=== PATIENT | female | born 1945 | race Caucasian/White ===

== ENCOUNTER → 2018-08-10 11:05 | Oncology outpatient (ONC) | payer OTHER, SELFPAY ==
--- NOTE | 2018-08-10 10:02 | P.PNONC_ITS ---
PN -Subjective Interval history: The patient is a 73-year-old female being seen in the clinic August 10, 2018. She carries a diagnosis of aplastic anemia treated with antithymocyte globulin at [facility] followed by cyclosporine and prednisone. She developed mild renal insufficiency making cyclosporin treatment difficult however has now been off treatment for 3 years. Today Kaleigh has no complaints whatsoever. She is feeling quite well overall. Activity tolerance is excellent. Appetite is excellent. No shortness of breath , chest pain. She has not had any recent illnesses or infections. She is due for a mammogram. She had a colonoscopy 10 years ago which was reported to be ?normal?, she discussed with her primary care provider decision was made to not move forward with any further colonoscopies. Stol card test was negative. Home Medications and Allergies Home Medications Medication Instructions Recorded Confirmed Type indomethacin 50 mg PO BIDP PRN #0 03/12/17 History acetaminophen 500 mg PO Q6H PRN 08/10/18 08/10/18 History cholecalciferol (vitamin D3) 5,000 unit PO DAILY 08/10/18 08/10/18 History [Vitamin D3] hydrochlorothiazide 25 mg PO DAILY 08/10/18 08/10/18 History magnesium oxide 400 mg PO DAILY 08/10/18 08/10/18 History [id number]-[id number] 08/10/18 History [Multivitamin 50 Plus] omega 9-bof-rcf-fish oil [Fish Oil] 1,200 08/10/18 History vitamin E 180 unit PO DAILY 08/10/18 08/10/18 History Allergies Allergy/AdvReac Type Severity Reaction Status Date / Time Penicillins [PENICILLINS] Allergy Intermediate swelling, Unverified 02/18/18 13: 00 itching SHRIMP Allergy Intermediate hives Uncoded 02/18/18 13:00 Exam - Constitutional positive no acute distress, positive obese - Routine HEENT Exam Eye: Present: conjunctivae pink. Absent: conjunctival icterus, scleral injection ENT: Present: mucous membranes moist, oropharynx clear - Routine Neck Exam Present: supple. Absent: lymphadenopathy - Routine Chest/Breast/Axilla Exam Axillae: Absent: lymphadenopathy - Routine Respiratory Exam Present: Clear to auscultation bilaterally. Absent: rales, rhonchi, wheezes - Routine Cardiovascular Exam Present: RRR, S1, S2. Absent: murmur, gallop, rubs, JVD - Routine Abdominal Exam Present: soft, normoactive bowel sounds. Absent: tenderness, distended, organomegaly, mass - Routine Extremities Exam Absent: edema - Routine Skin Exam Present: intact, normal turgor. Absent: rash - Routine Neurological Exam Present: alert, oriented X3 - Routine Psychiatric Exam Present: normal affect Results - Imaging Additional studies: Procedures Transfusion of packed cells (06/28/15) Transfusion of platelets (04/25/15) Assessment and Plan (1) Aplastic anemia Current visit: No Status: Acute The patient is a 73-year-old female being seen in the clinic August 10, 2018. She carries a diagnosis of aplastic anemia treated with antithymocyte globulin at [facility] followed by cyclosporine and prednisone. She developed mild renal insufficiency making cyclosporin treatment difficult however has now been off treatment for 3 years. Patient has no complaints whatsoever on exam today, overall feeling quite well. CBC demonstrates a white count of 7.2 hemoglobin 13.3 hematocrit 39.3 MCV 95.6. Platelets 218216. ANC 5000. Creatinine is stable for this patient with renal insufficiency at 1.8. GFR also stable for this patient at 28. Alkaline phosphatase 53, AST 16, ALT 15. Pt is followed by Dr Fernandez, he manages her DM also follows renal function. Return to clinic in 1 years time for provider visit, CBC, CMP. - Time Spent with Patient 30 mins
[2018-08-10 11:16] VITALS: BP 150/86; PULSE 81; RESP 18; TEMP 36.6; O2SAT 99
== END ==
PROVIDERS: Family Provider Family Medicine; PCP Family Medicine; Visit Provider Nurse Practitioner Gerontology
DX: D61.9 Aplastic anemia, unspecified (principal); N28.9 Disorder of kidney and ureter, unspecified
CPT/HCPCS: 99214

== ENCOUNTER 2020-09-15 17:07 | Emergency (ER) | payer MEDICARE, BC, SELFPAY ==
[2020-09-15] VITALS (12 sets, daily range): BP systolic 144–226; BP diastolic 71–115; PULSE 82–97; RESP 15–21; O2SAT 93–100
--- NOTE | 2020-09-15 17:44 | DI.CT.S_ITS ---
PROCEDURE: CT CHEST ABD PEL WO CON INDICATIONS: large mass on outside CXR, sent for expedited workup TECHNIQUE: After the administration of oral contrast, 5 mm thick sections acquired from the lung apices to the symphysis pubis. 5 mm thick coronal and sagittal reformats acquired, with additional 7 mm coronal MIP reformats through the lungs. For radiation dose reduction, the following was used: automated exposure control, adjustment of mA and/or kV according to patient size. COMPARISON: [facility], CT, PE STUDY (CTA CHEST), 05/08/2015, 16:13. [facility], CR, CHEST 2 VIEW, 11/22/2015, 11:43. FINDINGS: Image quality: Excellent. CHEST: Lungs and pleura: Mild ground-glass density and interstitial pulmonary opacity within the right upper lobe medially. Multi lobular 33 mm mass mm within the right upper lobe posteriorly. No pleural effusions or pneumothorax. Central and peripheral airways are patent are normal in caliber. Mediastinum: Heart size is normal. Calcification of the coronary vasculature. Small pericardial effusion. pericardial effusion. There is a large mass within the right paratracheal location measuring 83 mm anteroposterior which partially encases the andrés and right mainstem bronchus. Subcarinal adenopathy measuring 25 mm short axis is present. Thoracic aorta and central pulmonary arteries are normal in size. Esophagus is normal in caliber. No hiatal hernia. Chest wall: No axillary or supraclavicular adenopathy by size criteria. Thyroid gland is within normal limits . ABDOMEN: Solid organs: Liver is normal in size. Gallbladder is within normal limits . Pancreas is normal in contours. Spleen is normal in size. No adrenal nodules. Both kidneys are normal in size, without hydronephrosis or nephrolithiasis. Peritoneum and bowel: Small and large bowel loops are normal in caliber and wall thickness. No free fluid or air. Nodes and vessels: No retroperitoneal or mesenteric adenopathy by size criteria. Aorta and inferior vena cava are normal in size. Miscellaneous: No ventral hernias. PELVIS: Genitourinary: Bladder wall thickness is normal. Miscellaneous: No inguinal hernias or adenopathy. Bones: No suspicious bony lesions. Bilateral hip arthroplasty. No vertebral body compression fractures. IMPRESSION: 1. Right upper lobe malignant-appearing mass. 2. Metastatic mediastinal and right hilar adenopathy associated with encasement of the airways as described above. 3. Mild postobstructive phenomenon within the right upper lobe. 4. Coronary artery disease. 5. Small pericardial effusion. Dictated by: Blayne Polo M.D. on 09/15/2020 at 19:19 Approved by: Blayne Polo M.D. on 09/15/2020 at 19:23
[2020-09-15 17:59] LABS: Add Manual Diff / Slide Review NO; Basophils Absolute Auto 0 /uL (0-100); Basophils Percent Auto 0.6 % (0-2); Eosinophils Absolute Auto 200 /uL (0-450); Eosinophils Percent Auto 2.5 % (2-4); Hematocrit 34.6 % (36-46); Hemoglobin 11.8 g/dL (12.0-16.0); Lymphocytes Absolute Auto 1300 /uL (1100-4500); Lymphocytes Percent Auto 20.6 % (25-40); Mean Corpuscular HGB Conc 34.2 % (30-36); Mean Corpuscular Hemoglobin 32.5 PG (26-34); Mean Corpuscular Volume 94.9 fL (80-100); Monocytes Absolute Auto 400 /uL (0-900); Monocytes Percent Auto 6.6 % (3-14); Neutrophils Absolute Auto 4300 /uL (1500-7000); Neutrophils Percent Auto 69.7 % (50-75); Platelet Count 151 X10^3/uL (150-400); Red Blood Cell Count 3.64 X10^6/uL (4.0-5.2); Red Cell Distribution Width 13.2 % (11.6-14.8); White Blood Cell Count 6.1 X10^3/uL (4.5-11.0)
[2020-09-15 18:07] LABS: INR 1.1 (0.9-1.3); Prothrombin Time 12.2 SECONDS (10.1-12.7)
[2020-09-15 18:09] LABS: PTT Partial Thromboplastin Tim 35 SECONDS (26.4-36.2)
[2020-09-15 18:11] LABS: Alanine Aminotransferase 22 IU/L (<35); Albumin 4.6 g/dL (3.5-5.0); Albumin Globulin Ratio 1.2 (1.0-2.8); Alkaline Phosphatase 67 U/L (38-126); Aspartate Aminotransferase 39 IU/L (14-36); BUN Creatinine Ratio 18.5 (6-22); Bilirubin Total 0.5 mg/dL (0.2-1.3); Blood Urea Nitrogen 41 mg/dL (7-17); Carbon Dioxide 32 mmol/L (22-32); Chloride 98 mmol/L (98-107); Creatine Kinase 50 U/L (30-135); Estimated Glomerular Filt Rate 21.6 mL/min (>60); Globulin 3.9 g/dL (1.7-4.1); Glucose 111 mg/dL (80-110); HEMOLYSIS 19 (0-50); Lipase 220 U/L (23-300); Sodium 137 mmol/L (137-145); Total Protein 8.5 g/dL (6.3-8.2)
[2020-09-15 18:22] LABS: Troponin I < 0.012 ng/mL (0.01-0.034)
--- NOTE | 2020-09-15 18:40 | ED_ITS ---
HPI - SOB/Dyspnea General Chief Complaint: Shortness of Breath/Dyspnea Stated Complaint: sent by doctor, abnormal xray, R lung nodule Time Seen by Provider: 09/15/20 17:34 Source: patient Mode of arrival: Ambulatory Limitations: no limitations History of Present Illness HPI Narrative: 75-year-old female former smoker without significant medical history presents at the request of her primary care provider. She has had increasing shortness of breath, fatigue and a fullness in her chest for least the past month period a few days ago she started having some blood streaked sputum but still has no significant work of breathing or respiratory distress. She has had no headache or blurred vision. She denies any chest pain, fever, chills nor nausea or vomiting. She denies any history of cancer or unplanned weight loss. She went to see her primary care provider due to the above-stated complaints and he performed a chest x-ray which suggested a mass in her right lung upwards of 9 cm. MD Complaint: shortness of breath and cough Onset (ago): week(s) Severity: moderate Consistency/Duration: constant Relieving factors: rest Exacerbating factors: movement and coughing Treatment prior to arrival: none Related Data Home oxygen amount: none Home Medications Medication Instructions Recorded Confirmed indomethacin 50 mg PO BIDP PRN #0 03/12/17 acetaminophen 500 mg PO Q6H PRN 08/10/18 08/10/18 cholecalciferol (vitamin D3) 5,000 unit PO DAILY 08/10/18 08/10/18 [Vitamin D3] hydrochlorothiazide 25 mg PO DAILY 08/10/18 08/10/18 magnesium oxide 400 mg PO DAILY 08/10/18 08/10/18 [id number] 08/10/18 [Multivitamin 50 Plus] omega 6-xvp-sdn-fish oil [Fish Oil] 1,200 08/10/18 vitamin E 180 unit PO DAILY 08/10/18 08/10/18 Previous Rx's Medication Instructions Recorded azithromycin See Rx Instructions .ROUTE 09/15/20 .COMPLEX #6 tab Allergies Allergy/AdvReac Type Severity Reaction Status Date / Time Penicillins [PENICILLINS] Allergy Intermediate swelling, Unverified 02/18/18 13:00 itching SHRIMP Allergy Intermediate hives Uncoded 02/18/18 13:00 Review of Systems Constitutional Constitutional: Denies chills, Denies fatigue, Denies fever(s), Denies frequent falls, Denies lethargy and Denies weakness Eyes Eyes: Denies change in vision, Denies eye discharge, Denies irritation and Denies loss of vision ENT Ears, Nose, Mouth, and Throat: Denies change in voice, Denies dizziness, Denies neck pain, Denies sore throat and Denies throat swelling Cardiovascular Cardiovascular: Denies chest pain, Denies irregular heart rhythm, Denies lightheadedness, Denies palpitations, Reports dyspnea, Denies dyspnea on exertion and Denies orthopnea Respiratory Respiratory: Reports cough, Reports hemoptysis, Reports dyspnea, Denies dyspnea on exertion and Denies wheezing Gastrointestinal Gastrointestinal: Denies abdominal pain, Denies change in bowel habits, Denies diarrhea, Denies nausea and Denies vomiting Musculoskeletal Musculoskeletal: Denies neck pain and Denies numbness Integumentary/Breasts Skin/Breast: Denies pruritus, Denies erythema, Denies rash and Denies wounds Neurologic Neurologic: Denies behavioral changes, Denies confusion, Denies dizziness, D enies frequent falls, Denies loss of vision, Denies numbness and Denies weakness Psychiatric Psychiatric: Denies anxiety, Denies behavioral changes, Denies confusion, Denies depression, Denies homicidal ideation and Denies suicidal ideation Endocrine Endocrine: Denies fatigue, Denies flushing and Denies palpitations Hematologic/Lymphatic Hematologic/Lymphatic: Denies easy bruising Allergic/Immunologic Allergic/Immunologic: Denies urticaria, Denies throat swelling and Denies wheezing Patient History Surgical History History of hip replacement Status post hysterectomy Family History Brother Cancer Smoking Status: Former smoker alcohol intake frequency: 0-2 drinks per day Substance Use Type: does not use Exam Narrative Exam Narrative: GENERAL: [75] year old patient appears stated age. Well- nourished, well-developed patient, in mild distress. HEAD: Atraumatic. Normocephalic. EYES: Pupils equal round and reactive. Extraocular motions intact. No scleral icterus. No injection or drainage. ENT: Nose without bleeding, purulent drainage. Throat without erythema, tonsillar hypertrophy or exudate. Airway patent. NECK: Trachea midline. Non tender CARDIOVASCULAR: Regular rate and rhythm without murmurs, gallops, or rubs. RESPIRATORY: Clear to auscultation. Breath sounds equal bilaterally. No wheezes, rales, or rhonchi. GASTROINTESTINAL: Abdomen soft, non-tender, nondistended. EXTREMITIES: No edema or joint tenderness. BACK: Nontender without deformity or crepitance. No flank tenderness. NEURO: AOx3. SKIN: No rash or erythema of visible areas Initial Vital Signs Initial Vital Signs: Vital Signs Pulse Rate 95 H 09/15/20 17:30 Respiratory Rate 18 09/15/20 17:30 Blood Pressure 226/95 H 09/15/20 17:30 Pulse Oximetry 99 09/15/20 17:30 Course Orders Ordered: Discontinued Medications Sodium Chloride (Normal Saline 0.9%) 500 mls @ 1,000 mls/hr IV BOLUS ONE Stop: 09/15/20 19:05 Last Admin: 09/15/20 19:22 Dose: 1,000 mls/hr Documented by: MMINOR Consultations Consultation #1: Discussed with on-call Oncology, Dr. Flynn. Shares opinion that given stable presentation she is appropriate to go home, but will require close follow up. He will relay message to Dr. Gonzales and suggests patient may benefit from Azithromycin given CT findings, also patinet may very well need tissue diagnosis and Dr. Gonzales can help with this. Vital Signs Vital signs: Vital Signs - 8 hr 09/15/20 17:30 09/15/20 18:08 09/15/20 18:14 Pulse Rate 95 H 94 H 97 H Respiratory Rate 18 19 21 Blood Pressure 226/95 H 182/86 H Pulse Oximetry 99 100 09/15/20 18:30 09/15/20 18:31 09/15/20 19:00 Pulse Rate 96 H 96 H 94 H Respiratory Rate 17 15 19 Blood Pressure 172/77 H Pulse Oximetry 98 99 93 09/15/20 19:19 09/15/20 19:30 09/15/20 19:31 Pulse Rate 93 H 91 H 91 H Respiratory Rate 21 17 19 Blood Pressure 166/115 H 165/71 H Pulse Oximetry 99 99 MDM - SOB/Dyspnea Lab Data Result diagrams: 09/15/20 17:55 09/15/20 17:55 Labs: Lab Results 11/06/20 11/06/20 11/06/20 Range/Units 17:55 17:55 17:55 WBC 6.1 (4.5-11.0) X10^3/uL RBC 3.64 L (4.0-5.2) X10^6/uL Hgb 11.8 L (12.0-16.0) g/dL Hct 34.6 L (36-46) % MCV 94.9 (80-100) fL MCH 32.5 (26-34) PG MCHC 34.2 (30-36) % RDW 13.2 (11.6-14.8) % Plt Count 151 (150-400) X10^3/uL Neut % (Auto) 69.7 (50-75) % Lymph % (Auto) 20.6 L (25-40) % [place] % (Auto) 6.6 (3-14) % Eos % (Auto) 2.5 (2-4) % Baso % (Auto) 0.6 (0-2) % Neut # (Auto) 4300 (1059-8442) /uL Lymph # (Auto) 1300 (8912-2615) /uL [place] # (Auto) 400 (0-900) /uL Eos # (Auto) 200 (0-450) /uL Baso # (Auto) 0 (0-100) /uL PT 12.2 (10.1-12.7) SECONDS INR 1.1 (0.9-1.3) APTT 35 (26.4-36.2) SECONDS Sodium 137 (137-145) mmol/L Potassium 4.0 (3.4-5.1) mmol/L Chloride 98 (98-107) mmol/L Carbon Dioxide 32 (22-32) mmol/L BUN 41 H (7-17) mg/dL Creatinine 2.22 H (0.52-1.04) mg/dL Estimated GFR 21.6 L (>60) mL/min BUN/Creatinine Ratio 18.5 (6-22) Glucose 111 H (80-110) mg/dL Calcium 10.0 (8.4-10.2) mg/dL Total Bilirubin 0.5 (0.2-1.3) mg/dL AST 39 H (14-36) IU/L ALT 22 (<35) IU/L Alkaline Phosphatase 67 (38-126) U/L Total Creatine Kinase 50 (30-135) U/L CK-MB (CK-2) TNP CK-MB (CK-2) Rel Index TNP Troponin I < 0.012 (0.01-0.034) ng/mL Total Protein 8.5 H (6.3-8.2) g/dL Albumin 4.6 (3.5-5.0) g/dL Globulin 3.9 (1.7-4.1) g/dL Albumin/Globulin Ratio 1.2 (1.0-2.8) Lipase 220 (23-300) U/L Imaging Data CT scan - chest: Radiologist's Impression: [address] [address] [address] Scan Report Signed Patient: Ayesha Mills KMR#: [id number] : 6Acct:[id number] Age/Sex: 75 / FDate of Service: 09/15/20 Loc: ED Accession Number: [id number] Procedure: CT chest abd pel wo con Ordering Provider: Dallas Hutton D.O. PROCEDURE: CT CHEST ABD PEL WO CON INDICATIONS: large mass on outside CXR, sent for expedited workup TECHNIQUE: After the administration of oral contrast, 5 mm thick sections acquired from the lung apices to the symphysis pubis. 5 mm thick coronal and sagittal reformats acquired, with additional 7 mm coronal MIP reformats through the lungs. For radiation dose reduction, the following was used: automated exposure control, adjustment of mA and/or kV according to patient size. COMPARISON: [facility], CT, PE STUDY (CTA CHEST), 05/08/2015, 16:13. [facility], CR, CHEST 2 VIEW, 11/22/2015, 11:43. FINDINGS: Image quality: Excellent. CHEST: Lungs and pleura: Mild ground-glass density and interstitial pulmonary opacity within the right upper lobe medially. Multi lobular 33 mm mass mm within the right upper lobe posteriorly. No pleural effusions or pneumothorax. Central and peripheral airways are patent are normal in caliber. Mediastinum: Heart size is normal. Calcification of the coronary vasculature. Small pericardial effusion. pericardial effusion. There is a large mass within the right paratracheal location measuring 83 mm anteroposterior which partially encases the andrés and right mainstem bronchus. Subcarinal adenopathy measuring 25 mm short axis is present. Thoracic aorta and central pulmonary arteries are normal in size. Esophagus is normal in caliber. No hiatal hernia. Chest wall: No axillary or supraclavicular adenopathy by size criteria. Thyroid gland is within normal limits . ABDOMEN: Solid organs: Liver is normal in size. Gallbladder is within normal limits . Pancreas is normal in contours. Spleen is normal in size. No adrenal nodules. Both kidneys are normal in size, without hydronephrosis or nephrolithiasis. Peritoneum and bowel: Small and large bowel loops are normal in caliber and wall thickness. No free fluid or air. Nodes and vessels: No retroperitoneal or mesenteric adenopathy by size criteria. Aorta and inferior vena cava are normal in size. Miscellaneous: No ventral hernias. PELVIS: Genitourinary: Bladder wall thickness is normal. Miscellaneous: No inguinal hernias or adenopathy. Bones: No suspicious bony lesions. Bilateral hip arthroplasty. No vertebral body compression fractures. IMPRESSION: 1. Right upper lobe malignant-appearing mass. 2. Metastatic mediastinal and right hilar adenopathy associated with encasement of the airways as described above. 3. Mild postobstructive phenomenon within the right upper lobe. 4. Coronary artery disease. 5. Small pericardial effusion. Dictated by: Blayne Polo M.D. on 09/15/2020 at 19:19 Approved by: Blayne Polo M.D. on 09/15/2020 at 19:23 MDM Narrative Medical decision making narrative: Patient presents with mass on CXR and CT suggests this likely a lung cancer with metastasis. Patient understands her possible diagnosis, and the plan to follow up closely . She's been given extensive return precautions which she understands well. She's had her questions answered to her apparent satisfaction. Discharge Plan Departure Patient Disposition: Home Clinical Impression: Mass of lung Discharge Date/Time: 09/15/20 20:34 Instructions: DI for Lung Cancer Activity Restrictions/Additional Instructions: *You have been diagnosed with [is seems very likely that the lung mass noted under chest x-ray is in fact lung cancer, it is very important that we get you in contact with oncology Friday morning. As I told you, I called the on-call oncologist nerissa who is in agreement with this plan.] *What to do: *Take medications as directed *call Dr. Gonzales at the [facility] on Friday morning at 0830, tell them we saw you in the Emergency Department and Dr. Ferreira wants you to be seen as soon as possible *Return to ER if you should have any new, worsening or concerning symptoms Prescriptions: New azithromycin 250 mg tablet See Rx Instructions .ROUTE .COMPLEX Qty: 6 RF: 0 No Action indomethacin 50 MG capsule 50 mg PO BIDP PRN (Reason: GOUT) Qty: 0 RF: 0 vitamin E 100 unit Capsule 180 unit PO DAILY RF: 0 acetaminophen 500 mg Tablet 500 mg PO Q6H PRN (Reason: Pain (Scale Score 1-3)) RF: 0 magnesium oxide 400 mg Tablet 400 mg PO DAILY RF: 0 txcpycjhmzhq-tlayqdwj-zcwnew [Multivitamin 50 Plus] Tablet RF: 0 cholecalciferol (vitamin D3) [Vitamin D3] 5,000 unit Tablet 5,000 unit PO DAILY RF: 0 omega 5-jsd-ikt-fish oil [Fish Oil] 1,000 mg (120 mg-180 mg) Capsule 1,200 RF: 0 hydrochlorothiazide 25 mg Tablet 25 mg PO DAILY RF: 0 Referrals: Saurabh Fernandez MD [Primary Care Provider] - Melany Gonzales MD [Physician] -
[2020-09-15] MEDS: SODIUM CHLORIDE 0.9% 500 ML 1000 ML IV (19:22)
--- NOTE | 2020-09-29 10:46 | PC.NURSE ---
STOP time of 500ML NS was 2030
== END 2020-09-15 20:34 | disposition home or self-care (01) ==
PROVIDERS: Emergency Provider Emergency Medicine; Family Provider Family Medicine; PCP Family Medicine
DX: R91.8 Other nonspecific abnormal finding of lung field (principal); R07.9 Chest pain, unspecified; R04.2 Hemoptysis
CPT/HCPCS: 71250; 74176; 80053; 82550; 83690; 84484; 85025; 85610; 85730; 93005; 96360; 99283; 99284; 99285

== ENCOUNTER → 2020-10-04 10:33 | Outpatient (CLI) | payer MEDICARE, BC, SELFPAY ==
--- NOTE | 2020-10-04 10:37 | DI.MRI.S_ITS ---
PROCEDURE: MR HEAD/BRAIN WO/W CON INDICATIONS: metastatic lung cancer TECHNIQUE: Noncontrast axial T1 spin echo, axial T2 fast spin echo, sagittal and axial FLAIR, coronal T2 fast spin echo, axial gradient echo, axial diffusion and ADC through the brain. After the administration of contrast, axial and coronal T1 spin echo with fat saturation through the brain. COMPARISON: None. FINDINGS: Image quality: Excellent. CSF spaces: Basal cisterns are patent. No extra-axial fluid collections. Ventricles are normal in size and shape. Brain: Within the right superior cerebellum, there is a rim enhancing mass seen, with cystic and solid components measuring 1.7 x 1.7 by 1.7 cm. No definite additional enhancing masses are seen. No midline shift. No intracranial bleeds can be seen. There is cerebral volume loss for age. There is periventricular white matter chronic small vessel ischemic change. The brainstem appears normal. Diffusion-weighted images demonstrate no acute ischemic insults. No chronic ischemic insults. Normal intravascular flow voids are present. Skull and face: Calvarial marrow is normal in signal. Orbits appear normal. Sinuses: Sinuses and mastoids appear clear. IMPRESSION: There is a 1.7 cm mass within the right cerebellum, which is attributed to metastatic disease in this patient with this given history. Dictated by: Carloz Fontaine M.D. on 10/04/2020 at 11:22 Approved by: Carloz Fontaine M.D. on 10/04/2020 at 11:24
== END ==
PROVIDERS: Family Provider Family Medicine; PCP Family Medicine; Referring Provider Internal Medicine Hematology & Oncology; Visit Provider Internal Medicine Hematology & Oncology
DX: C34.90 Malignant neoplasm of unspecified part of unspecified bronchus or lung (principal); C79.31 Secondary malignant neoplasm of brain
CPT/HCPCS: 70553

== ENCOUNTER 2020-11-15 10:05 | Day surgery (SDC) | payer MEDICARE, SELFPAY ==
[2020-11-15] VITALS (11 sets, daily range): BP systolic 93–127; BP diastolic 43–77; PULSE 83–105; RESP 10–18; TEMP 36.2–37.1; O2SAT 98–99; BMI 32.5
--- NOTE | 2020-11-15 | PATH_ITS ---
[facility] Accession Number: [id number] . 01 Material submitted: . PART A: cecum - RANDOM CECUM BIOPSIES PART B: colon - TRANSVERSE POLYP X2 . 02 Diagnosis: A. Random Cecum, Biopsies: Colonic mucosa with no diagnostic abnormality. Negative for active, chronic, and microscopic colitis. Negative for dysplasia and malignancy. . B. Transverse Colon, Polyp x2, Biopsy: Tubular adenoma in two of four fragments. MRV 11/17/2020 1253 Local . 02 Electronically signed: . Sierra Hatch MD, Pathologist NPI- [id number] . 01 Gross description: . Part A: RANDOM CECUM BIOPSIES: Received in formalin are multiple fragment(s) of boogie, soft tissue measuring 0.1 x 0.1 x 0.1 cm to 0.3 x 0.2 x 0.2 cm submitted entirely in 1 cassette(s) Part B: TRANSVERSE POLYP X2: Received in formalin are 4 fragment(s) of boogie, soft tissue measuring 0.1 x 0.1 x 0.1 cm to 0.6 x 0.2 x 0.2 cm submitted entirely in 1 cassette(s) /ANIL 11/16/2020 1907 Local . 02 Pathologist provided ICD-10: D12.3 . 02 CPT . 570192, 022098 Performed at: 01 [facility] [address], [place], [place] [id number] MD Alirio Abraham MD Phone: [phone] Performed at: 02 [facility] [address] [place], [place] [id number] MD Sierra Hatch MD Phone: [phone]
--- NOTE | 2020-11-15 08:19 | PM.HP.1 ---
History of Present Illness History of Present Illness Date Patient Seen: 11/15/20 Chief complaint: SDC Narrative: 75-year-old female with metastatic lung cancer who had abnormal uptake on PET scan in the cecum. She was seen in our office on 11/08/2020 Patient History Medical History (Updated 11/03/20 @ 10:11 by Melany Gonzales MD) Aplastic anemia Chronic kidney disease Diabetes Hypertension Surgical History History of hip replacement Status post hysterectomy Family & Social History Family History (Updated 09/21/20 @ 12:44 by Melany Gonzales MD) Brother Prostate cancer Tobacco & Substance use: Smoking Status Former smoker alcohol intake former alcohol intake frequency 0-2 drinks per day Substance Use Type does not use Meds Home Medications and Allergies Home Medications Medication Instructions Recorded Confirmed Type acetaminophen 500 mg PO Q6H PRN 08/10/18 11/15/20 History cholecalciferol (vitamin D3) 5,000 unit PO DAILY 08/10/18 11/15/20 History [Vitamin D3] hydrochlorothiazide 25 mg PO DAILY 08/10/18 11/15/20 History magnesium oxide 400 mg PO DAILY 08/10/18 11/15/20 History vitamin E 180 unit PO DAILY 08/10/18 11/15/20 History ascorbic acid (vitamin C) [Vitamin 500 mg DAILY 09/21/20 11/15/20 History C] dexamethasone 2 mg PO Q12H #30 tab 10/09/20 11/15/20 Rx Allergies Allergy/AdvReac Type Severity Reaction Status Date / Time Penicillins [PENICILLINS] Allergy Intermediate swelling, Verified 11/15/20 10:38 itching SHRIMP Allergy Intermediate hives Uncoded 11/15/20 10:38 Exam Narrative Exam Narrative: General: Patient is well developed, not in apparent distress Cardiovascular: Regular rate and rhythm, no murmurs, rubs, or gallops; no evidence of edema; no palpable abdominal aortic aneurysm Gastrointestinal: Normoactive bowel sounds, soft, nontender, nondistended, no rebound tenderness, no hepatosplenomegaly, no evidence of hernia Assessment & Plan Assessment & Plan narrative: 75-year-old female with metastatic lung cancer and found to have abnormal uptake in the cecum on PET scan Regarding the procedure(s), the risks and potential complications, benefits, and alternatives (including not doing the procedure) were discussed with the patient. The risks include but are not limited to bleeding, splenic injury, infection, perforation which may require surgical intervention, missed lesions, and adverse reactions to sedative medicines. After a question and answer period, the patient agreed to proceed with the procedure(s) and gives informed consent.
[2020-11-15 10:47] LABS: COVID19 -Nasal RAPID Negative (Negative)
[2020-11-15] MEDS: SODIUM CHLORIDE 0.9% 1,000 ML 70 ML IV (11:13)
--- NOTE | 2020-11-15 11:23 | PM.OP.ENDO ---
Operative Date/Time/Diagnoses Date of procedure: 11/15/20 Procedure Notes Procedure in detail: Surgeon: Akash Urbina MD Procedure: Colonoscopy with polypectomy, cecal biopsy Preoperative diagnosis: Abnormal uptake in cecum on PET scan Postoperative diagnosis: Transverse polyps x2 status post polypectomy; normal appearing cecum status post biopsy; left-sided diverticulosis Medications: Conscious sedation using 5 mg IV of Midazolam and 100 mcg IV of Fentanyl Preanesthesia Assessment An H and P was performed/updated and the Px?s ASA class is 3. The procedure was discussed in detail with the patient. The potential risks and complications including infection, bleeding, missed lesions, perforation, need for surgery in case of perforation, prolonged hospital stay, and were explained. A brief question and answer period was allotted and once all questions were answered, informed consent was obtained. The patient was brought back to the procedure room and placed on standard monitoring. The patient?s vital signs were monitored continuously throughout the entire procedure. Prior to starting, a timeout was performed to confirm the patient?s identity, allergies, medications, and procedure. Procedure in detail The patient was placed in left lateral decubitus position and once adequate sedation was obtained a CHENTE was performed. The digital rectal examination did not reveal any palpable lesions. The tip of the colonoscope was placed in the anal canal and advanced without difficulty all the way to the cecum which was identified by the appendiceal orifice and the ileocecal valve. Careful examination of all leon of the colon was performed with irrigation of any residual stool. The cecal mucosa appeared normal with no distinct mass or nodularity. Random biopsies were taken from this area with minimal drainage In the transverse colon, there was note of 2 polyps, 1 sessile 1 semi pedunculated which were both removed by means of cold snare. Resection retrieval was complete with minimal In the descending and sigmoid colon, there was note of multiple medium-sized diverticula Retroflexion was performed in the rectum which revealed a hypertrophied anal papillae and grade 1 internal hemorrhoids The patient tolerated the procedure well and will be brought back to the recovery area to be discharged once criteria are met. The prep was judged to be good and adequate to identify polyps less than 5 mm. The withdrawal time was 13 minutes. The total physician intraservice time was 23 minutes. Complications There were no complications and estimated blood loss was minimal. Recommendations: Resume previous diet Continue outPx medications Follow up pathology results No further surveillance colonoscopy warranted given patient's history of metastatic lung cancer Follow-up with oncologist as scheduled An emergency contact number was given to the patient for any complications related to the procedure
[2020-11-15] MEDS: fentaNYL 250 MCG/5 ML INJ IV (11:30)
[2020-11-15] MEDS: MIDAZOLAM 5 MG/5 ML VIAL IV (11:35)
== END 2020-11-15 13:35 | disposition home or self-care (01) ==
PROVIDERS: Family Provider Family Medicine; PCP Family Medicine; Referring Provider Internal Medicine Gastroenterology; Visit Provider Internal Medicine Gastroenterology
PROC: 0DJD8ZZ Inspection of Lower Intestinal Tract, Via Natural or Artificial Opening Endoscopic (ICD-10-PCS; CPT 45378; principal; 2020-11-15 11:30)
DX: R93.3 Abnormal findings on diagnostic imaging of other parts of digestive tract (principal); C34.90 Malignant neoplasm of unspecified part of unspecified bronchus or lung; E11.9 Type 2 diabetes mellitus without complications; I10 Essential (primary) hypertension; K57.30 Diverticulosis of large intestine without perforation or abscess without bleeding; K64.4 Residual hemorrhoidal skin tags; K64.0 First degree hemorrhoids; D12.3 Benign neoplasm of transverse colon
CPT/HCPCS: 45385; 45380; 87635; J1642; J2250; J3010

== ENCOUNTER → 2020-12-26 13:20 | Outpatient (CLI) | payer MEDICARE, SELFPAY ==
--- NOTE | 2020-12-26 13:22 | DI.RAD.S_ITS ---
PROCEDURE: XR CHEST 2V INDICATIONS: new cough, increased SOB, decreaseed lung sounds karlo. bases TECHNIQUE: 2 views of the chest were acquired. COMPARISON: [facility], CT, CT PORTILLO, 10/26/2020, 14:21. Outside Facility, [place], XR CXR 2V, 09/15/2020, 10:00. [facility], CT, CT CHEST ABD PEL WO CON, 09/15/2020, 18:40. FINDINGS: Surgical changes and devices: Left chest wall Port-A-Cath.. Lungs and pleura: Masslike opacity in the medial aspect of the apex of the right lung is increased in size compared to September 15, 2020. Right suprahilar mass is decreased in size compared to the prior exam. No pleural effusions or pneumothorax. Mediastinum: Mediastinal contours are normal. Heart size is normal. Bones and chest wall: No suspicious bony abnormalities. Convex left thoracolumbar spine scoliosis. Soft tissues appear unremarkable. IMPRESSION: 1. No acute cardiopulmonary disease process. 2. Right lung apex mass slightly increased in size. 2. Right suprahilar mass decreased in size. Dictated by: Lucinda Gordillo MD, PhD on 12/26/2020 at 17:18 Approved by: Lucinda Gordillo MD, PhD on 12/26/2020 at 17:21
== END ==
PROVIDERS: Family Provider Family Medicine; PCP Family Medicine; Referring Provider Internal Medicine; Visit Provider Internal Medicine
DX: C34.90 Malignant neoplasm of unspecified part of unspecified bronchus or lung (principal); R05 Cough
CPT/HCPCS: 71046

== ENCOUNTER → 2021-03-06 16:14 | Outpatient (CLI) | payer MEDICARE, SELFPAY ==
[2021-03-06 17:09] LABS: Uric Acid 9.7 mg/dL (2.5-6.2)
== END ==
PROVIDERS: Family Provider Family Medicine; PCP Family Medicine; Visit Provider Physician Assistant
DX: M10.9 Gout, unspecified (principal)
CPT/HCPCS: 84550

== ENCOUNTER → 2021-05-31 07:11 | Outpatient (CLI) | payer MEDICARE, SELFPAY ==
--- NOTE | 2021-05-31 07:14 | DI.CT.S_ITS ---
PROCEDURE: CT CHEST ABD PEL WO CON INDICATIONS: lung cancer TECHNIQUE: After the administration of oral contrast, 5 mm thick sections acquired from the lung apices to the symphysis pubis. 5 mm thick coronal and sagittal reformats acquired, with additional 7 mm coronal MIP reformats through the lungs. For radiation dose reduction, the following was used: automated exposure control, adjustment of mA and/or kV according to patient size. COMPARISON: [facility], [place], [place] PET CT FUSION SKULL 2 THIGH, 10/04/2020, 14:33. [facility], CT, CT CHEST ABDOMEN PELVIS WITHOUT CONTRAST, 03/29/2021, 20:22. [facility], CT, CT CHEST ABD PEL WO CON, 09/15/2020, 18:40. FINDINGS: Image quality: Excellent. CHEST: Lungs and pleura: There is a lobulated mass in the right upper lobe, measuring 2.1 x 2.7 cm, slightly decreased in size (previously 2.5 x 2.9 cm on 03/29/2021). No pleural effusions or pneumothorax. There is a 5 mm nodular density in the right anterior right main bronchus, unchanged. There is complete obstruction of the right upper lobe bronchus by a large hilar keron mass. There is right upper lobe atelectasis. Mediastinum: There is a large conglomerate right hilar and mediastinal keron mass measuring 6.7 x 8.0 cm, which appears slightly enlarged when compared to the last exam; previously measuring 5.6x 6.7 cm. A 2.1 cm subcarinal lymph node is identified, previously measuring 1.5 cm. Heart size is normal. Moderate coronary artery calcification. Trace pericardial effusion is present, new. Thoracic aorta and central pulmonary arteries are normal in size. Esophagus is normal in caliber. No hiatal hernia. Chest wall: No axillary or supraclavicular adenopathy by size criteria. Thyroid gland is normal. Mild skin thickening of the left breast. . ABDOMEN: Solid organs: Liver is normal in size. Gallbladder is normal. Pancreas is normal in contours. Spleen is normal in size. There is a 1.4 x 2.3 cm left adrenal nodule, which is enlarged since the last exam (previously 0.9 x 1.7 cm), suspicious for worsening of adrenal metastasis. Both kidneys are normal in size, without hydronephrosis or nephrolithiasis. Peritoneum and bowel: Small and large bowel loops are normal in caliber and wall thickness. There are scattered colonic diverticula. No CT findings to suggest acute diverticulitis. No free fluid or air. Nodes and vessels: No retroperitoneal or mesenteric adenopathy by size criteria. Aorta and inferior vena cava are normal in size. Moderate atherosclerotic calcifications. Miscellaneous: No ventral hernias. PELVIS: Genitourinary: Bladder wall thickness is normal. Miscellaneous: No inguinal hernias or adenopathy. Bones: No suspicious bony lesions. No vertebral body compression fractures. Bilateral hip arthroplasties. Scoliosis and degenerative changes in lumbar spine. IMPRESSION: 1. A lobulated mass in the right upper lobe appears slightly decreased in size compared to the last exam. 2. Interval worsening of of right hilar and mediastinal lymphadenopathy. The large conglomerate right hilar and mediastinal keron mass causes complete obstruction of the right upper lobe bronchus. 3. Interval enlargement of left adrenal nodule, suspicious for metastasis. 4. Stable 5 mm nodule within the right main bronchus. 5. Small pericardial effusion, new. Dictated by: Jennifer Sewell M.D. on 05/31/2021 at 16:26 Approved by: Jennifer Sewell M.D. on 05/31/2021 at 16:46
== END ==
PROVIDERS: Family Provider Family Medicine; PCP Family Medicine; Referring Provider Internal Medicine Hematology & Oncology; Visit Provider Internal Medicine Hematology & Oncology
DX: C34.11 Malignant neoplasm of upper lobe, right bronchus or lung (principal); R59.0 Localized enlarged lymph nodes; E27.9 Disorder of adrenal gland, unspecified; I31.3 Pericardial effusion (noninflammatory)
CPT/HCPCS: 71250; 74176